=== PATIENT | male | born 1990 | race Native Hawaiian/Other Pacific Islander ===

== ENCOUNTER 2022-07-06 02:14 | Emergency (ER) | payer OTHER ==
[~2022-07-06] VITALS: Ht 172.7 cm; Wt 81.6 kg
[2022-07-06 02:20] VITALS: BP 140/93; TEMP 98.7
== END 2022-07-06 03:31 | disposition home or self-care (01) ==
LOC: ED 02:14
PROC: 0HQGXZZ Repair Left Hand Skin, External Approach (ICD-10-PCS; principal; 2022-07-06)
PROC: 2W3KX1Z Immobilization of Left Finger using Splint (ICD-10-PCS; 2022-07-06)
DX: S61.215A Laceration without foreign body of left ring finger without damage to nail, initial encounter (principal); W26.8XXA Contact with other sharp object(s), not elsewhere classified, initial encounter; Y92.89 Other specified places as the place of occurrence of the external cause
CPT/HCPCS: 99283; J2001

== ENCOUNTER 2023-06-09 16:35 | Emergency (ER) | payer OTHER ==
[~2023-06-09] VITALS: Ht 172.7 cm; Wt 85.3 kg
[2023-06-09 18:11] VITALS: BP 117/75; TEMP 98.2
== END 2023-06-09 18:11 | disposition home or self-care (01) ==
LOC: ED 16:35
DX: M54.50 Low back pain, unspecified (principal)
CPT/HCPCS: 96372; 99283; J1885; J2930